=== PATIENT | female | born 1955 | race Caucasian/White ===

== ENCOUNTER 2017-03-05 15:57 | Inpatient (IN) ==
[2017-03-05 16:33] LABS: MANUAL DIFF NEEDED? NO
--- NOTE | 2017-03-05 16:36 | Diag Imaging Result Doc PS360 ---
CHEST-2 VIEWS - 03/05/2017 INDICATION: cough TECHNIQUE: COMPARISON: 08/10/2016 FINDINGS: There are new sternotomy wires. There is cardiomegaly and pulmonary vascular congestion. There are increased interstitial markings centrally and in the lung bases suggesting mild pulmonary edema. There are probably trace pleural effusions. IMPRESSION: Cardiomegaly, pulmonary edema, trace pleural effusions. Electronically signed by Koko Taylor 03/05/2017 4:33 PM
[2017-03-05 16:46] LABS: BASO% 0.4 % (0.0-0.8); EOS% 1.8 % (0.0-10.0); HEMATOCRIT 40.9 % (37.0-47.0); HEMOGLOBIN 13.3 g/dL (12.0-16.0); LYMPH% 18.4 % (20.5-51.1); MCH 28.4 PG (27-31); MCHC 32.5 g/dL (33-37); MCV 87.2 FL (81-99); MONO# 0.41 X1000 (0.11-0.59); MONO% 7.6 % (1.7-9.3); NEUT% 71.8 % (42.2-75.2); PLT 240 X1000 (130-400); RBC 4.69 XMIL (4.2-5.4)
[2017-03-05 16:55] LABS: INR 1.04; PTT 25.4 Seconds (22.0-36.0)
[2017-03-05 17:09] LABS: ALBUMIN 3.9 g/dL (3.5-5.0); CALCIUM 9.2 mg/dL (8.8-10.2); MAGNESIUM 1.8 mg/dL (1.5-2.7); POTASSIUM 3.6 mmol/L (3.5-5.1); TOTAL BILIRUBIN 0.56 mg/dL (0.20-1.00); TOTAL PROTEIN 7.1 g/dL (6.3-8.3)
[2017-03-05 20:42] LABS: ALLEN TEST YES; BE -3.9 mmoll (-3.0-3.0); BLOOD TYPE ARTERIAL; DRAW SITE R RADIAL; METHB 1.3 % (0.0-1.5); MODALITY ROOM AIR; O2(CT) 18.2 mL/dL (15.0-23.0); PCO2(98.6) 23 mmHg (35-45); PO2(98.6) 65 mmHg (60-100); SAMPLE BLOOD; SAO2 95.6 % (95.0-100.0); THB 13.9 g/dL (11.5-17.4); pH(98.6) 7.49 (7.35-7.45)
[2017-03-05] MEDS ORDERED: LASIX IV ONE (20:47)
--- NOTE | 2017-03-05 20:48 | PROVIDER DOCUMENTATION ---
HPI-General Adult - General Chief Complaint: Shortness of Breath Stated Complaint: CANT BREATHE,COUGHING Time Seen by Provider: 03/05/17 18:30 Source: patient Allergies/Adverse Reactions: Patient Allergies Allergy/AdvReac Type Severity Reaction Status Date / Time azithromycin Allergy NAUSEA/VOMI Verified 05/18/15 16:26 TING Sulfa (Sulfonamide Allergy NAUSEA/VOMI Verified 03/07/17 22:19 Antibiotics) TING Home Medications: Home Medication List Medication Instructions Recorded Confirmed Last Taken Type Levothyroxine [Synthroid] 25 mcg PO DAILY 05/18/15 03/05/17 05/18/15 09:00 History Omeprazole [Prilosec] 20 mg PO DAILY 05/18/15 03/05/17 05/18/15 09:00 History ROSUVAstatin [Crestor] 1 dose PO HS 05/18/15 03/05/17 05/17/15 21:00 History Aspirin 325 mg PO DAILY 03/05/17 03/05/17 Unknown History Furosemide [Lasix] 40 mg PO PRN PRN 03/05/17 03/05/17 Unknown History LISINOpril [Prinivil] 2.5 mg PO DAILY 03/05/17 03/05/17 Unknown History Metoprolol [Lopressor] 25 mg PO BID 03/05/17 03/05/17 Unknown History Potassium Chloride [Potassium 20 meq PO PRN PRN 03/05/17 03/05/17 Unknown History Chloride] - History of Present Illness -Gen Adult Nature of Presenting Problems: Pt is a 61 y/o F c chief complaint of sob and frothy sputum cough x 3-5 days. Pt states that she had emergency cardiac surgery in December and still has a known blockage in one of her cardiac arteries. Pt denies any acute chest pain. On arrival, pt is in minimal distress and speaking in full sentences. Review of Systems - Adult - REVIEW OF SYSTEMS - ADULT Constitutional: reports: no symptoms reported. denies: chills, fatique Eyes: reports: no symptoms reported. denies: blurred vision, double vision Ears, Nose, Mouth & Throat: reports: no symptoms reported. denies: ear pain, nose pain Cardiovascular: reports: no symptoms reported. denies: chest pain, orthopnea Respiratory: reports: cough, shortness of breath Gastrointestinal: reports: no symptoms reported. denies: abdominal pain, nausea Genitourinary: reports: no symptoms reported. denies: dysuria, hematuria Musculoskeletal: reports: no symptoms reported. denies: joint pain, joint swelling Integumentary: reports: no symptoms reported. denies: hives, itching Neurological: reports: no symptoms reported. denies: numbness, paresthesia Psychiatric: reports: no symptoms reported. denies: anxiety, emotional problems Endocrine: reports: no symptoms reported Hematologic/Lymphatic: reports: no symptoms reported Allergic/Immunologic: reports: no symptoms reported All Other Systems: Reviewed and Negative Past History - Adult - PAST MEDICAL HISTORY-ADULT Review of Records: reports: Old Records Reviewed, Nursing Assessment Review, Medications Reviewed, Social history reviewed & non-contributory. Major Childhood Illnesses: reports: denies history Cardiovascular: reports: CAD, HTN, LA Respiratory: reports: denies history Gastrointestinal: reports: denies history Obstetrical/Gynecological: reports: denies history Genitourinary: reports: denies history Musculoskeletal: reports: denies history Neurological: reports: denies history Endocrine/Immune: reports: denies history Other Conditions: reports: denies history - PRIOR SURGERIES/PROCEDURES Surgical/Procedure History: reports: recent surgery (December 2016), CABG - IMMUNIZATION STATUS Childhood Immunizations: See Nurse Assessment Flu Vaccine: See Nurse Assessment - FAMILY HISTORY Family History: reviewed, not pertinent - SOCIAL HISTORY Smoking: denies Substance Use: none/never Alcohol Use Frequency: never Physical Exam-General - PHYSICAL EXAM-ADULT Initial Vital Signs Reviewed: Yes - CONSTITUTIONAL General Appearance: alert, mild distress - EYES Eyes: PERRL/EOMI, pink conjunctivae - HEAD, EARS, NOSE, MOUTH & THROAT HENMT: normocephalic/atraumatic, moist mucous membranes, normal ENT inspection - NECK Neck: normal inspection - RESPIRATORY Respiratory: other (decreased lung sounds in bases bilat) - CARDIOVASCULAR Cardiovascular: normal peripheral pulses, regular rate, rhythm - GASTROINTESTINAL (ABDOMEN) Abdominal Exam: normal bowel sounds, non tender, soft - LYMPHATIC Lymphatic: no adenopathy - MUSCULOSKELETAL Back Exam: normal inspection, no CVA tenderness, no vertebral tenderness Extremity: normal range of motion, non-tender, normal inspection - SKIN Integumentary: normal color, normal turgor, warm/dry - NEUROLOGIC Neurologic: grossly normal, no motor/sensory deficits - PSYCHIATRIC Psych/Mental Status: normal mood/affect, normal thought content, normal thought process, oriented x 3 Progress - PLAN OF CARE/RESULTS Progress/Plan/Lab Results: Vital Signs - 8 hr 03/05/17 16:05 03/05/17 18:59 03/05/17 20:35 Temperature 98.8 F Pulse Rate 96 H 101 H 122 H Respiratory Rate 22 20 29 H Blood Pressure 124/77 158/111 146/109 O2 Sat by Pulse Oximetry 99 97 94 L Laboratory Results - last 24 hr 03/05/17 03/05/17 03/05/17 16:25 16:25 16:25 WBC 5.43 RBC 4.69 Hgb 13.3 Hct 40.9 MCV 87.2 MCH 28.4 MCHC 32.5 L RDW Std Deviation 14.2 Plt Count 240 MPV 10.0 Immature Gran % (Auto) 0.0 Neut % (Auto) 71.8 Lymph % (Auto) 18.4 L Hart % (Auto) 7.6 Eos % (Auto) 1.8 Baso % (Auto) 0.4 Immature Gran # (Auto) 0.00 Neut # (Auto) 3.90 Lymph # (Auto) 1.00 L Hart # (Auto) 0.41 Eos # (Auto) 0.10 Baso # (Auto) 0.02 PT INR PTT (Actin FS) D-Dimer 1.79 H Specimen Type Sample Site pH pCO2 pO2 HCO3 Base Excess Oxyhemoglobin ABG O2 Sat (Calculated) ABG O2 Saturation ABG Carboxyhemoglobin ABG Methemoglobin Km Test A-a O2 Difference Total Hemoglobin Lactate Blood Gas Modality FiO2 % Sodium 137 Potassium 3.6 Chloride 102 Carbon Dioxide 19 L Anion Gap 16 BUN 8 Creatinine 1.0 H Estimated GFR/1.73 m2 56 BUN/Creatinine Ratio 8 Glucose 92 Calculated Osmolality 272 Calcium 9.2 Magnesium 1.8 Total Bilirubin 0.56 AST 20 ALT 15 Alkaline Phosphatase 79 Creatine Kinase 55 Troponin T [id number] Pept Total Protein 7.1 Albumin 3.9 Globulin 3.2 Albumin/Globulin Ratio 1.2 03/05/17 03/05/17 03/05/17 16:25 16:25 16:25 WBC RBC Hgb Hct MCV MCH MCHC RDW Std Deviation Plt Count MPV Immature Gran % (Auto) Neut % (Auto) Lymph % (Auto) Hart % (Auto) Eos % (Auto) Baso % (Auto) Immature Gran # (Auto) Neut # (Auto) Lymph # (Auto) Hart # (Auto) Eos # (Auto) Baso # (Auto) PT 11.0 INR 1.04 PTT (Actin FS) 25.4 D-Dimer Specimen Type Sample Site pH pCO2 pO2 HCO3 Base Excess Oxyhemoglobin ABG O2 Sat (Calculated) ABG O2 Saturation ABG Carboxyhemoglobin ABG Methemoglobin Km Test A-a O2 Difference Total Hemoglobin Lactate Blood Gas Modality FiO2 % Sodium Potassium Chloride Carbon Dioxide Anion Gap BUN Creatinine Estimated GFR/1.73 m2 BUN/Creatinine Ratio Glucose Calculated Osmolality Calcium Magnesium Total Bilirubin AST ALT Alkaline Phosphatase Creatine Kinase Troponin T < 0.010 [id number]-[id number] Pept 55508 H Total Protein Albumin Globulin Albumin/Globulin Ratio 03/05/17 20:32 WBC RBC Hgb Hct MCV MCH MCHC RDW Std Deviation Plt Count MPV Immature Gran % (Auto) Neut % (Auto) Lymph % (Auto) Hart % (Auto) Eos % (Auto) Baso % (Auto) Immature Gran # (Auto) Neut # (Auto) Lymph # (Auto) Hart # (Auto) Eos # (Auto) Baso # (Auto) PT INR PTT (Actin FS) D-Dimer Specimen Type ARTERIAL Sample Site R RADIAL pH 7.49 H pCO2 23 L pO2 65 HCO3 21.8 Base Excess -3.9 L Oxyhemoglobin 92.9 L ABG O2 Sat (Calculated) 18.2 ABG O2 Saturation 95.6 ABG Carboxyhemoglobin 1.50 ABG Methemoglobin 1.3 Km Test YES A-a O2 Difference 56.0 Total Hemoglobin 13.9 Lactate 2.60 H Blood Gas Modality ROOM AIR FiO2 % 21.0 Sodium Potassium Chloride Carbon Dioxide Anion Gap BUN Creatinine Estimated GFR/1.73 m2 BUN/Creatinine Ratio Glucose Calculated Osmolality Calcium Magnesium Total Bilirubin AST ALT Alkaline Phosphatase Creatine Kinase Troponin T Zju-P-Vzlxevqtexz Pept Total Protein Albumin Globulin Albumin/Globulin Ratio Orders Category Date Time Status ANGIOGRAM/PULMONARY ARTERIES [CT] Stat Exams 03/05/17 18:31 Taken CHEST-2 VIEWS [RAD] Stat Exams 03/05/17 16:17 Completed ABG [RESP] Routine Lab 03/05/17 20:32 Completed CBC WITH ELECTRONIC DIFF [HEME] Stat Lab 03/05/17 16:25 Completed CK PROFILE [SP CHEM] Stat Lab 03/05/17 16:25 Completed COMPREHENSIVE METABOLIC PANEL [CHEM] Stat Lab 03/05/17 16:25 Completed D-DIMER [CHEM] Stat Lab 03/05/17 16:25 Completed MAGNESIUM [CHEM] Stat Lab 03/05/17 16:25 Completed PRO B-NATRIURETIC PEPTIDE Stat Lab 03/05/17 16:25 Completed PROTIME WITH INR [COAG] Stat Lab 03/05/17 16:25 Completed PTT [COAG] Stat Lab 03/05/17 16:25 Completed TROPONIN T Stat Lab 03/05/17 16:25 Completed EKG [EKG] Stat Ther 03/05/17 16:09 Ordered EKG [EKG] Stat Ther 03/05/17 16:17 Ordered Result Diagrams: 03/07/17 12:16 03/07/17 12:16 - XRAY 1 XRAY Study: Chest Impression: Abnormal (CARDIOMEGALY, PULMONARY EDEMA, TRACE PLURAL EFFUSIONS - RADIOLOGY) - CT/MRI 1 CT Study: Angiogram (pulmonary) Impression: Abnormal (NO PE, CHF - PRELIM RADIOLOGY REPORT) - CONSULTS/PCP/HOSPITALIST Notification #1 *Consult/PCP/Hospitalist*: Dr. Shaver (Hospitalist) Time Discussed: 20:59 Reason/Comments: Will admit. Departure - Departure Time of Disposition Decision: 21:00 DIAGNOSIS: Acute exacerbation of CHF (congestive heart failure) Qualifiers: Congestive heart failure type: unspecified congestive heart failure type Qualified Code(s): I50.9 - Heart failure, unspecified Disposition: ADMITTED INPATIENT 09 Certified Medical Emergency: Emergent Condition: Stable - Critical Care Note This patient required my direct & personal management of CC.: No Attestation - Physician/ SAVAGE Attestation Patient care was provided by Advanced Practice Provider:: Yes Advanced Practice Provider:: Dewey Vanessa Advanced Practice Provider documentation review:: The Mid-level provider documentation, treatment plan and medical decision making was reviewed by the physician who agrees with all treatment and medical decision making by the P.
--- NOTE | 2017-03-05 21:10 | ED EKG INTERP ---
This chart was entered by Lazaro Knowles Scribe, acting as scribe for Thaddeus Trujillo MD. EKG Interpretation - EKG Time of EKG reading by physician:: 20:48 EKG Read and Signed by:: Thaddeus Trujillo EKG Interpretation (*Must complete 3 of following elements*): Abnormal ( Possible L atrial enlargement; Left anterior fascicular block; Anterior infarct , age undetermined; No STEMI) Rate: 109 Rhythm: Sinus tachycardia This chart was documented by the indicated scribe, (Lazaro Knowles Scribe) and accurately reflects the services I performed and decisions made by me, Thaddeus Trujillo MD, as attested by the provider's signature.
--- NOTE | 2017-03-05 21:10 | Diag Imaging Result Doc PS360 ---
EXAM: ANGIOGRAM/PULMONARY ARTERIES HISTORY: sob, elevated d-dimer, pulmonary edema TECHNIQUE: Dose reduction protocol COMPARISON: None. FINDINGS: Sternal wires are present. There is a small left-sided pleural effusion measuring 1.5 cm posteriorly and inferiorly in the midline. There is a small to moderate right-sided effusion measuring 3.2 cm. Heart is mildly enlarged. Prominent atherosclerosis. No thoracic aortic aneurysm. Normal opacification of the pulmonary arteries and their major branches. Mild bronchial wall thickening. No consolidation. Mild increased interstitial markings in the lower lungs. There is pulmonary edema. IMPRESSION: 1.No pulmonary emboli 2.Congestive failure 3.Mild bronchial wall thickening Electronically signed by Jacky Leach 03/05/2017 9:07 PM
--- NOTE | 2017-03-05 21:11 | ED EKG INTERP ---
This chart was entered by Lazaro Knowles Scribe, acting as scribe for Thaddeus Trujillo MD. EKG Interpretation - EKG Time of EKG reading by physician:: 20:50 EKG Read and Signed by:: Thaddeus Trujillo EKG Interpretation (*Must complete 3 of following elements*): Abnormal ( Possible L atrial enlargement; L anterior fascicular block; Anteroseptal infarct , age undetermined; T wave abnormality, consider lateral ischemia) Rate: 109 Rhythm: Sinus tachycardia This chart was documented by the indicated scribe, (Lazaro Knowles Scribe) and accurately reflects the services I performed and decisions made by me, Thaddeus Trujillo MD, as attested by the provider's signature.
[2017-03-05 21:37] LABS: URINE CULTURE NEEDED? NO; URINE MICRO REVIEW NEEDED? NO; URINE SOURCE CLEAN CATCH
[2017-03-05 21:42] LABS: BILIRUBIN URINE NEGATIVE (NEGATIVE); BLOOD URINE NEGATIVE (NEGATIVE); COLOR STRAW; GLUCOSE URINE NEGATIVE (NEGATIVE); LEUKOCYTES URINE NEGATIVE (NEGATIVE); NITRITE URINE NEGATIVE (NEGATIVE); PROTEIN URINE NEGATIVE (NEGATIVE); SP GRAVITY URINE 1.009; TURBIDITY URINE CLEAR (CLEAR); UR EPITHELIAL CELLS <10 /HPF (<10); URINE BACTERIA NEGATIVE /HPF; URINE RBC <10 /HPF (<10); URINE WBC <10 /HPF (<10); UROBILINOGEN URINE NORMAL (NORMAL)
--- NOTE | 2017-03-05 22:18 | HISTORY AND PHYSICAL ---
PRIMARY CARE PHYSICIAN: Dr. Tawanda Franco CHIEF COMPLAINT: Shortness of breath. HISTORY OF PRESENTING ILLNESS: 61-year-old female with a history of hypertension, hyperlipidemia, coronary artery disease status post recent coronary bypass, had presented to emergency department with 1-week history of worsening shortness of breath. The patient states that she felt like it was a congestion initially but then later her shortness of breath worsened such that she could not tolerate and subsequently she had come to the emergency department. In the ER, she was evaluated and she was somewhat dyspneic. She was put on supplemental oxygen. She was given IV Lasix and she diuresed well. Due to her presenting symptoms patient will need hospitalization for further cardiac evaluation and workup. At the time of my examination she denied any headache, visual changes, fevers, chills, chest pain, hemoptysis, melena, weight changes, but complained of shortness of breath. PAST MEDICAL HISTORY: Includes hypertension, hyperlipidemia, hypothyroidism, GERD, coronary disease. PAST SURGICAL HISTORY: Coronary bypass, hysterectomy, lumbar fusion, cervical diskectomy. ALLERGIES: Sulfa an azithromycin. CURRENT MEDICATIONS: Listed in MAR. SOCIAL HISTORY: She denies any history of smoking, alcohol or illicit drug use. FAMILY HISTORY: Positive for coronary disease in mother and father. REVIEW OF SYSTEMS: Twelve point review of systems is as in HPI. Other systems negative. PHYSICAL EXAMINATION: GENERAL: Cooperative, friendly female. She is resting more comfortably now. VITAL SIGNS: Temperature 98.8 degrees, pulse 96, respiration 22, blood pressure 124/77. HEENT: Atraumatic, normocephalic. Extraocular movements intact. PERRLA. NECK: No masses. CHEST: Bibasilar rales. CARDIOVASCULAR: Regular rate and rhythm. ABDOMEN: Soft. Positive bowel sounds. EXTREMITIES: Trace edema. NEURO: She is awake, alert, oriented x3. : No bladder distention. SKIN: Warm. LABORATORIES AND STUDIES: WBCs 5.43, hemoglobin 13.3, hematocrit 40.9, platelets 240,000. Pro-BNP is 12,285. Sodium 137, potassium 3.6, chloride 102, CO2 is 19, BUN is 8, creatinine is 1.0, glucose is 92. ASSESSMENT: This is a 61-year-old female with a history of hypertension, hypothyroidism, coronary disease, status post recent coronary bypass about a month ago had presented to emergency department with complaint of worsening shortness of breath. She is found to be in heart failure. She will need hospitalization for further management. ASSESSMENT: 1. Acute congestive heart failure exacerbation unspecified. 2. Hypertension. 3. Hyperlipidemia. 4. Hypothyroidism. PLAN: 1. We will admit patient to [facility]. 2. Continue with diuresis with Lasix. 3. We will check echocardiogram. 4. We will consult Cardiology. 5. We will monitor blood pressure closely. 6. Restart her home medications. 7. Put patient on DVT prophylaxis with SCDs. 8. We will continue to follow and reassess. cc: Antonio Shaver MD MTDD
[2017-03-06 06:28] LABS: MANUAL DIFF NEEDED? NO
[2017-03-06 06:33] LABS: BASO% 0.2 % (0.0-0.8); EOS# 0.09 X1000 (0.0-0.7); HEMATOCRIT 44.1 % (37.0-47.0); HEMOGLOBIN 14.2 g/dL (12.0-16.0); LYMPH# 1.22 X1000 (1.2-3.4); LYMPH% 26.6 % (20.5-51.1); MCH 27.8 PG (27-31); MCHC 32.2 g/dL (33-37); MCV 86.3 FL (81-99); MONO# 0.54 X1000 (0.11-0.59); MONO% 11.8 % (1.7-9.3); MPV 9.8 FL (7.4-10.4); NEUT% 59.4 % (42.2-75.2); PLT 254 X1000 (130-400); RBC 5.11 XMIL (4.2-5.4)
[2017-03-06] MEDS ORDERED: KLOR-CON PO PRN (08:57)
[2017-03-06] MEDS: LASIX IV SCH ×2 (09:09→21:42)
[2017-03-06] MEDS: SYNTHROID PO SCH (10:22)
[2017-03-06] MEDS: PRINIVIL PO SCH (10:23)
[2017-03-06] MEDS: KLOR-CON PO SCH (10:23)
[2017-03-06] MEDS: PRILOSEC PO SCH (10:24)
[2017-03-06] MEDS: LOPRESSOR PO SCH ×2 (10:25→21:42)
[2017-03-06] MEDS: ASPIRIN PO SCH (10:25)
--- NOTE | 2017-03-06 10:32 | PROGRESS NOTE ---
DATE: 03/06/2017 SUBJECTIVE: Today, Ms. Larkin refers to be doing a whole lot better. According to her, she is breathing much, much better than when she came in. OBJECTIVE: Vital Signs: Blood pressure is 102/61, pulse of 81, respirations are 20, temperature is 96.7 degrees. General Examination: Ms. Larkin is a 61-year-old, female. She was sitting up in a chair. She did not seem to be in any remarkable distress. HEENT: Mucosa is pink and moist. Anicteric and acyanotic. Neck: Supple. Chest: Good air entry bilaterally. There are a few bibasilar crepitations. Cardiovascular: Regular rate and rhythm. There are occasional extrasystole beats. No murmurs. Abdomen: Soft. Extremities: No pedal edema. AWNING MAKER: Patient is alert and oriented x4. There is no focal neurological deficit. Laboratory Data: None for today. Troponins have been all negative. ProBNP on admission was 12,285. A CTA which was done showed no pulmonary emboli, congestive heart failure with mild bronchial wall thickening. ASSESSMENT: 1. Acute respiratory distress secondary to pulmonary edema and pleural effusions. 2. Acute on chronic congestive heart failure. 3. Mild bronchial wall thickening noted on CT. Patient does refer to have had some chills, nasal congestion, and some upper respiratory tract symptoms. I think she probably has an underlying bronchitis or an upper respiratory tract infection that decompensated her congestive heart failure. I will go ahead and put her on oral Augmentin for the acute bronchitis. 4. History of coronary artery disease, status post coronary artery bypass graft last December. 5. Hypertension, controlled. 6. Hypothyroidism. PLAN: In general, I think Ms. Larkin is relatively stable today. She says she has a very bad bladder and because she is on IV Lasix, she does not want the Palac[place] catheter to be removed today. We are going to transfer her from the ICU to the regular floor. We will restart her home medications including Synthroid, lisinopril 2.5 daily. We will cut back on the metoprolol to 12.5 b.i.d. because she is in acute exacerbation. We will continue with her Crestor and potassium supplement. I have also added Augmentin for an upper respiratory tract infection. Patient is pending to be evaluated also by cardiology today. I think if she continues to progress in this some successful manner, we might be able to discharge her maybe tomorrow or the day after. cc: Tony Burch MD MTDD
--- NOTE | 2017-03-06 17:56 | CONSULTATION ---
DATE OF CONSULTATION: 03/06/2017 IMPRESSIONS: 1. Acute congestive heart failure, probably systolic. 2. Atherosclerotic coronary disease. Patient is status post emergency coronary bypass procedure about 1 month ago after complications related to PCI/stent of left anterior descending coronary artery. 3. Longstanding hypertension with left hypertrophy, hypertensive cardiovascular disease. Probable component of diastolic heart failure as well. 4. Hypercholesterolemia. 5. Hypothyroidism. RECOMMENDATIONS: 1. Diurese with intravenous Lasix as you are doing. 2. Repeat echocardiography. 3. Continue beta dot and angiotensin converting enzyme inhibitor as tolerated. 4. Continue antiplatelet therapy with aspirin. HISTORY: This 61-year-old white female with a past history of atherosclerotic coronary disease, longstanding hypertension with associated left hypertrophy, hypercholesterolemia, and hypothyroidism was admitted after she presented with progressive dyspnea and findings consistent with acute congestive heart failure. She has known coronary disease and had a 70% LAD stenosis by coronary angiography in 2014. She is being managed medically. In the past few months she has started having problems with increasing fatigue. She had an echocardiography which indicated normal left ventricular ejection fraction. Given her known coronary disease she was referred for cardiac catheterization/coronary angiography in [place]. LAD stenosis was felt too merit a stent. PCI/stenting of left anterior descending coronary was complicated apparently by dissection and occlusion. She had emergency coronary bypass surgery thereafter. She has had some tendency for exertional shortness of breath since discharge. She had been instructed to use Lasix on an as needed basis if for weight went by 5 pounds. She has had tendency for orthopnea since discharge in that she would sleep propped up on pillows. Over the past week or so her dyspnea symptoms have progressed to the point that she get short of breath just walking to the bathroom. She has had no angina. She came to the emergency room and was found to have signs of pulmonary edema. She has been admitted and started on intravenous Lasix and diuresis has been initiated. She presently relates feeling better. PAST MEDICAL HISTORY: 1. Atherosclerotic coronary disease as outlined above. 2. Longstanding hypertension with associated left hypertrophy. 3. Hypercholesterolemia. 4. Gastroesophageal reflux disease. PAST SURGICAL HISTORY: Includes recent coronary bypass surgery, two back procedures, neck surgery, and hysterectomy. ALLERGIES: She is allergic or intolerant to azithromycin. MEDICATIONS: Prior to admission as listed. SOCIAL HISTORY: She is a nonsmoker. Does not use alcohol. FAMILY HISTORY: Positive for coronary disease. REVIEW OF SYSTEMS: Pulmonary: Noteworthy for dyspnea and orthopnea but otherwise negative. Gastrointestinal: Negative beyond history of present illness. Constitutional: Negative beyond history of present illness. Remainder of review of systems negative/noncontributory beyond history present illness with 14 total systems reviewed. PHYSICAL EXAMINATION: General: This is a pleasant, older, white female, in no distress. Vital Signs: As recorded are stable and include a blood pressure of 95/70, heart rate 80 and regular with ECG monitor showing sinus rhythm with occasional premature ventricular complex. HEENT: Extraocular movements appear intact. Mucous membranes are moist. Neck: Supple without jugular venous distention. Carotid bruits cannot be appreciated. Chest: Auscultation of the chest reveals bibasilar inspiratory crackles. Cardiac Exam: Reveals a regular rate and rhythm without appreciable murmur or gallop. Abdomen: Soft, nontender. Bowel sounds normal. Extremities: Without edema. Neurologic Exam: Reveals her to be alert, fully oriented. Speech is fluent. She moves all 4 extremities equally well. Skin: Warm and dry. Psychiatric: Exam reveals mood to be appropriate. DIAGNOSTIC DATA: ECG demonstrates a sinus rhythm, left atrial abnormality, left anterior fascicular block, anterior infarct of undetermined age. cc: Darell Tadeo MD
[2017-03-06] MEDS: AUGMENTIN PO SCH (21:41)
[2017-03-06] MEDS: CRESTOR PO SCH (21:41)
[2017-03-07] MEDS: SYNTHROID PO SCH (06:08)
[2017-03-07] MEDS: PRILOSEC PO SCH (06:09)
[2017-03-07 06:45] LABS: MANUAL DIFF NEEDED? NO
[2017-03-07 06:48] LABS: BASO% 0.3 % (0.0-0.8); EOS# 0.21 X1000 (0.0-0.7); EOS% 3.5 % (0.0-10.0); HEMOGLOBIN 14.3 g/dL (12.0-16.0); LYMPH# 1.09 X1000 (1.2-3.4); LYMPH% 18.4 % (20.5-51.1); MCH 28.1 PG (27-31); MCHC 32.5 g/dL (33-37); MCV 86.4 FL (81-99); MONO% 11.8 % (1.7-9.3); MPV 10.1 FL (7.4-10.4); PLT 249 X1000 (130-400); RBC 5.09 XMIL (4.2-5.4)
[2017-03-07 07:10] LABS: CALCIUM 9.1 mg/dL (8.8-10.2); POTASSIUM 3.7 mmol/L (3.5-5.1)
[2017-03-07] MEDS: LOPRESSOR PO SCH ×2 (08:21→22:08)
[2017-03-07] MEDS: AUGMENTIN PO SCH ×2 (08:21→22:08)
[2017-03-07] MEDS: LASIX IV SCH (08:21)
[2017-03-07] MEDS: ASPIRIN PO SCH (08:21)
[2017-03-07] MEDS: KLOR-CON PO SCH (08:22)
[2017-03-07] MEDS: PRINIVIL PO SCH (08:23)
[2017-03-07] MEDS ORDERED: KLOR-CON PO SCH (09:00)
--- NOTE | 2017-03-07 10:18 | ECHO REPORT ---
ORDER DATE: 03/06/2017 MEASUREMENTS: Left ventricular end-diastolic diameter 5.3, end-systolic diameter 4.8, posterior wall 0.9, left atrium 4.2, aortic root 2.9. SUMMARY: 1. Adequate quality study. 2. Aortic valve is trileaflet and opens normally on 2-dimensional images. Mitral, tricuspid, and pulmonic valves are without structural abnormality, with mild mitral regurgitation, trace tricuspid regurgitation, and trace pulmonic insufficiency. The estimated systolic PA pressure by Doppler is 25 to 30 mmHg. The aortic root is normal in size. 3. Normal left ventricular chamber size and wall thickness demonstrated. Estimated left ventricular ejection fraction is approximately 20% to 25%. There is akinesis of the mid-to- apical anterior wall, entire apex, and apical inferior wall. There is akinesis of the mid apical septum. There is severe hypokinesis of the mid inferior wall. Left atrium is mildly enlarged. Right atrium and right ventricle are of normal size, with grossly preserved right ventricular systolic performance. 4. No pericardial effusion. 5. Appearance of inferior vena cava suggests normal central venous pressure. 6. Left pleural effusion noted. cc: MD Antonio Figueroa MD
[2017-03-07] MEDS ORDERED: LOPRESSOR PO ONE (12:02)
[2017-03-07 12:21] LABS: MANUAL DIFF NEEDED? NO
[2017-03-07 12:41] LABS: BASO% 0.3 % (0.0-0.8); EOS# 0.19 X1000 (0.0-0.7); HEMATOCRIT 44.7 % (37.0-47.0); HEMOGLOBIN 14.7 g/dL (12.0-16.0); LYMPH# 1.63 X1000 (1.2-3.4); LYMPH% 25.5 % (20.5-51.1); MCH 28.3 PG (27-31); MCHC 32.9 g/dL (33-37); MONO# 0.58 X1000 (0.11-0.59); MONO% 9.1 % (1.7-9.3); NEUT% 62.1 % (42.2-75.2); PLT 320 X1000 (130-400)
[2017-03-07 13:14] LABS: ALBUMIN 4.3 g/dL (3.5-5.0); CALCIUM 9.6 mg/dL (8.8-10.2); POTASSIUM 4.5 mmol/L (3.5-5.1); TOTAL BILIRUBIN 0.56 mg/dL (0.20-1.00); TOTAL PROTEIN 8.1 g/dL (6.3-8.3)
--- NOTE | 2017-03-07 13:32 | PROGRESS NOTE ---
DATE: 03/07/2017 SUBJECTIVE: The patient is sitting on the bedside commode. She is off of supplemental oxygen. She states that she feels a lot better today. OBJECTIVE: Vital Signs: Temperature 97.8 degrees, blood pressure 98/51, heart rate 79, respirations 18, O2 saturations 100% on room air. General: This is an elderly female, sitting up in no acute distress. Head: Normocephalic. Atraumatic. Heart: S1, S2. Normal. Regular rate and rhythm. Lungs: Clear to auscultation bilaterally. No crackles. No rales. Abdomen: Positive bowel sounds. Soft, nontender, nondistended. Extremities: No edema. No cyanosis. No calf tenderness. Neurologic: The patient is alert and oriented x3. LABORATORY DATA: Labs reviewed. ASSESSMENT AND PLAN: 1. Acute systolic congestive heart failure exacerbation. Improved. The patient is no longer requiring supplemental oxygen. We will transition her to oral Lasix. Cardiology is following. 2. Hypothyroidism. Continue on Synthroid. 3. Hypertension. Controlled. 4. Gastroesophageal reflux disease. Continue on Prilosec. 5. Deep vein thrombosis prophylaxis. We will start the patient on Lovenox. 6. We will consult physical therapy. cc: Gogo Parker MD
[2017-03-07] MEDS: LOVENOX SUBQ SCH (15:00)
[2017-03-07] MEDS: CRESTOR PO SCH (22:07)
[2017-03-08] MEDS: SYNTHROID PO SCH (06:08)
[2017-03-08] MEDS: PRILOSEC PO SCH (06:08)
[2017-03-08 06:50] LABS: CALCIUM 9.2 mg/dL (8.8-10.2); POTASSIUM 3.6 mmol/L (3.5-5.1)
--- NOTE | 2017-03-08 07:34 | Diag Imaging Result Doc PS360 ---
EXAM: CHEST-2 VIEWS HISTORY: chf, ischemic cardiomyopathy, post diuresis TECHNIQUE: PA and lateral chest COMMENT: There are sternotomy wires. The left ventricle slightly enlarged. The pleural effusions on the previous study of 03/05/2017 have apparently resolved. There is no evidence of acute pulmonary disease. IMPRESSION: No acute disease. Electronically signed by Juan Blunt 03/08/2017 7:32 AM
[2017-03-08] MEDS ORDERED: PRINIVIL PO ONE (07:57)
--- NOTE | 2017-03-08 08:25 | PROGRESS NOTE ---
DATE: 03/08/2017 SUBJECTIVE: Patient continues to develop dyspnea or chest pain on room air. She relates feeling well. OBJECTIVE: Vital Signs: Blood pressure 107/66, heart rate 81 and regular with ECG monitor showing sinus rhythm. There is no significant JV distention. Chest: Clear to auscultation. Cardiac Exam: Reveals a regular rate and rhythm without appreciable murmur or gallop. There is no evidence of peripheral edema. IMPRESSION: 1. Acute systolic heart failure improved. 2. A. Atherosclerotic coronary disease. A. Status post extensive myocardial infarction in distribution of left anterior descending coronary after failed percutaneous coronary intervention of left anterior descending coronary and subsequent emergent coronary bypass grafting. C severe ischemic cardiomyopathy. 3. Long-standing hypertension with some left hypertrophy. 4. Hypercholesterolemia. RECOMMENDATIONS: 1. Continue metoprolol 25 mg p.o. b.i.d. 2. Increase lisinopril as tolerated. 3. Continue oral Lasix. 4. Will try and arrange LifeVest prior to discharge which potentially could be this afternoon. cc: Darell Tadeo MD
[2017-03-08] MEDS ORDERED: LASIX PO SCH (09:00)
[2017-03-08] MEDS: KLOR-CON PO SCH (09:08)
[2017-03-08] MEDS: LOPRESSOR PO SCH (09:08)
[2017-03-08] MEDS: ASPIRIN PO SCH (09:09)
[2017-03-08] MEDS: AUGMENTIN PO SCH (09:37)
[2017-03-08 11:52] LABS: MANUAL DIFF NEEDED? NO
[2017-03-08 11:57] LABS: BASO% 0.3 % (0.0-0.8); EOS% 4.9 % (0.0-10.0); HEMATOCRIT 45.2 % (37.0-47.0); HEMOGLOBIN 14.2 g/dL (12.0-16.0); IMM GRAN# 0.02 X1000 (0.0-0.04); IMM GRAN% 0.3 % (0.0-0.5); LYMPH# 1.47 X1000 (1.2-3.4); MCH 27.4 PG (27-31); MCHC 31.4 g/dL (33-37); MCV 87.3 FL (81-99); MONO# 0.59 X1000 (0.11-0.59); MONO% 9.6 % (1.7-9.3); MPV 9.8 FL (7.4-10.4); NEUT% 60.9 % (42.2-75.2); PLT 337 X1000 (130-400); RBC 5.18 XMIL (4.2-5.4)
[2017-03-08] MEDS: LOVENOX SUBQ SCH (14:01)
[2017-03-08] MEDS: PRINIVIL PO SCH (14:02)
[2017-03-08 14:12] VITALS: BP 100/62
--- NOTE | 2017-03-08 18:15 | DISCHARGE SUMMARY ---
ADMISSION DATE: 03/05/2017 DISCHARGE DATE: 03/08/2017 FINAL DISCHARGE DIAGNOSES: 1. Acute systolic congestive heart failure exacerbation. 2. Small left-sided pleural effusion. 3. Moderate right sided pleural effusion. 4. Acute pulmonary edema. 5. Cardiomyopathy with an ejection fraction of 20%-25%. 6. Coronary artery disease status post percutaneous coronary intervention and stent to the left anterior descending coronary artery. 7. Hypercholesterolemia. 8. Hypothyroidism. 9. Hypertension. CONSULTATIONS REQUESTED DURING THIS HOSPITAL STAY: Cardiology consultation with Dr. Tadeo. IMAGING PERFORMED DURING THIS HOSPITAL STAY: 1. Pulmonary arteriogram performed on 03/05/2017 that revealed no evidence of pulmonary emboli, congestive heart failure. 2. Two-dimensional echocardiogram which revealed an ejection fraction of 20-25%. Severe hypokinesis of the mid inferior wall. HOSPITAL COURSE: Ms. Larkin is a 61-year-old female with a history of coronary artery disease status post PCI and stent to the LAD, hypertension and hypercholesterolemia, who presented to the ER with severe shortness of breath. Upon arrival to the ER a chest x-ray was done that revealed cardiomegaly as well as pulmonary edema. Also the patient's proBNP was elevated at 12,285. The patient was admitted to the ICU and started on IV Lasix, and Cardiology was consulted. Slowly over the course of the hospitalization with diuresis the patient's respiratory status improved and she was able to be weaned off of supplemental oxygen. The patient was then stable enough to be transferred to the medical floor and her Lasix was then switched over to the oral formulation. The patient's echocardiogram did reveal an ejection fraction of 20% to 25%. In light of this arrangements were made for the patient to be fitted for a life vest. This was done and the patient was ultimately cleared for discharge home on 03/08/2017. DISCHARGE MEDICATIONS: 1. Lasix 40 mg p.o. daily. 2. Augmentin 875, 1 tablet oral every 12 hours x4 days. 3. Prilosec 20 mg p.o. daily. 4. Crestor 1 tablet oral at bedtime. 5. Synthroid 25 mcg p.o. daily. 6. Aspirin 325 mg oral daily. 7. Potassium chloride 20 mEq oral p.r.n. 8. Lisinopril 2.5 mg p.o. daily. 9. Lopressor 25 mg p.o. twice a day. DISCHARGE DIET: Low-sodium diet, low-cholesterol diet. ACTIVITY: As tolerated. FOLLOW-UP INSTRUCTIONS: The patient will need to follow up with Dr. Cricket Miller within 1 week. The patient will need to follow up with Dr. Franco in 2 weeks. cc: MD Gogo Finch MD
== END 2017-03-08 18:13 | disposition home or self-care (01) ==
LOC: ED 15:57 → SUATTDRO 23:41 → ICU 23:41 → 3N 03-07 11:14
PROVIDERS: ATTEND Internal Medicine